=== PATIENT | male | born 1975 | race Asian ===

== ENCOUNTER 2017-01-01 22:48 | Inpatient (IN) | payer OTHER ==
[~2017-01-01] VITALS: Ht 177.8 cm; Wt 81.6 kg
[2017-01-01] MEDS ORDERED: NITROGLYCERIN OINT 1GM/INCH UDPKT TD STA (23:30)
[2017-01-02] VITALS (7 sets, daily range): BP systolic 115–132; BP diastolic 66–89
[2017-01-02 00:05] LABS: BASOPHILS % 0.7 % (0.0-2.0); EOSINOPHILS % 4.2 % (0.0-5.0); HEMATOCRIT. 43.8 % (42.0-52.0); HEMOGLOBIN. 15.4 g/dL (14.0-18.0); LYMPHOCYTES % 37.7 % (20.0-50.0); MEAN CORPUSCULAR HEMOGLOBIN 32.4 pg (28.0-32.0); MEAN CORPUSCULAR VOLUME 92.1 fL (80.0-94.0); MEAN PLATELET VOLUME 9.2 fl (7.4-10.4); MONOCYTES % 7.5 % (2.0-8.0); NEUTROPHILS % 49.9 % (40.0-76.0); PLATELET 224 x1000/uL (130-400); RED BLOOD CELL COUNT 4.76 mill/uL (4.7-6.1); RED CELL DISTRIBUTION WIDTH 13.6 % (11.6-14.6)
[2017-01-02 00:16] LABS: CARBON DIOXIDE 25 mEq/L (21-32); CHLORIDE 108 mEq/L (98-107); TROPONIN I < 0.02 ng/mL (0.00-0.04)
[2017-01-02] MEDS ORDERED: SODIUM CHLORIDE 0.9% 1,000 ML IV SCH ×2 (00:32→11:15)
[2017-01-02] MEDS ORDERED: ACETAMINOPHEN 325MG TABLET PO ONE (02:15)
[2017-01-02] MEDS ORDERED: ASPI-1159 PO (03:57)
[2017-01-02] MEDS ORDERED: ATEN-42 PO (03:57)
[2017-01-02] MEDS ORDERED: NITR0.4T SL (03:57)
[2017-01-02] MEDS ORDERED: MORPHINE SULFATE 4 MG/ML CPJ (NOT FOR IM USE) IV PRN (06:45)
[2017-01-02] MEDS ORDERED: MAGNESIUM/ALUMINUM HYDROXIDE/SIMETHICONE 30ML UDC PO PRN (07:45)
[2017-01-02] MEDS ORDERED: ACETAMINOPHEN 650MG SUPP PR PRN (07:45)
[2017-01-02] MEDS ORDERED: ACETAMINOPHEN 650MG/20.3ML UDC GT PRN (07:45)
[2017-01-02] MEDS ORDERED: CLONIDINE 0.1MG TABLET PO PRN (07:45)
[2017-01-02] MEDS ORDERED: IPRATROPIUM/ALBUTEROL 0.5-3(2.5)MG/3ML NEB INH PRN (07:45)
[2017-01-02] MEDS ORDERED: DIPHENHYDRAMINE 50MG/ML VIAL IV PRN (07:45)
[2017-01-02] MEDS ORDERED: ACETAMINOPHEN 325MG TABLET PO PRN ×2 (07:45→11:15)
[2017-01-02] MEDS ORDERED: NA PHOS,M-B/NA PHOS,DI-BA ENEMA 118ML PR PRN (07:45)
[2017-01-02] MEDS ORDERED: GUAIFENESIN 200MG/10ML SUGAR FREE UDC PO PRN (07:45)
[2017-01-02] MEDS ORDERED: ONDANSETRON HCL 4MG/2ML VIAL IV PRN (07:45)
[2017-01-02] MEDS ORDERED: HYDROCODONE/ACETAMINOPHEN 5/325MG TABLET PO PRN (07:45)
[2017-01-02] MEDS: ENOXAPARIN 40MG/0.4ML SYR SUBCUT SCH (08:37)
[2017-01-02] MEDS ORDERED: DOCUSATE SODIUM 100MG CAPSULE PO PRN (09:00)
[2017-01-02] MEDS ORDERED: CLOPIDOGREL 75MG TABLET PO NR (10:00)
[2017-01-02] MEDS ORDERED: MIDAZOLAM HCL 2 MG/2 ML VIAL ONE (11:05)
[2017-01-02] MEDS ORDERED: LIDOCAINE HCL 1% 20ML VIAL (Pyxis) INJ ONE (11:06)
[2017-01-02] MEDS ORDERED: FENTANYL CITRATE/PF 50MCG/ML 2ML VIAL ONE (11:06)
[2017-01-02] MEDS ORDERED: ATROPINE SULFATE 1MG/10ML SYR IV PRN (11:15)
[2017-01-02 11:22] LABS: T4 FREE 0.94 ng/dL (0.76-1.46)
[2017-01-02] MEDS ORDERED: NITROGLYCERIN 50MCG/ML 10ML VIAL (CATH LAB) IV ONE (11:27)
[2017-01-02] MEDS ORDERED: PNEUMOCOCCAL 23-VAL P-SAC VAC 0.5 ML IM ONE (12:00)
[2017-01-02] MEDS ORDERED: IOHEXOL-350 100 ML BOTTLE ONE (12:42)
[2017-01-02 14:45] LABS: CLARITY URINE CLEAR (CLEAR); COLOR URINE YELLOW (YELLOW); GLUCOSE URINE NEGATIVE (NEGATIVE); KETONES URINE NEGATIVE (NEGATIVE); LEUKOCYTE ESTERASE URINE NEGATIVE (NEGATIVE); NITRITE URINE NEGATIVE (NEGATIVE); OCCULT BLOOD URINE NEGATIVE (NEGATIVE); PROTEIN URINE NEGATIVE (NEGATIVE); SPECIFIC GRAVITY URINE 1.023 (1.005-1.030); UROBILINOGEN URINE 0.2 E.U./dL (0.2-1.0)
[2017-01-02 15:11] LABS: *AMPHETAMINES SCREEN URINE NEGATIVE (NEGATIVE); *BARBITURATES SCREEN URINE NEGATIVE (NEGATIVE); *BENZODIAZEPINES SCREEN URINE NEGATIVE (NEGATIVE); *COCAINE SCREEN URINE NEGATIVE (NEGATIVE); CANNABINOID URINE SCREEN NEGATIVE (NEGATIVE); METHADONE URINE SCREEN NEGATIVE (NEGATIVE); OPIATES URINE SCREEN NEGATIVE (NEGATIVE); PHENCYCLIDINE URINE SCREEN NEGATIVE (NEGATIVE)
[2017-01-02 20:51] LABS: CREATINE KINASE 80 IU/L (39-308); TROPONIN I < 0.02 ng/mL (0.00-0.04)
[2017-01-02 20:52] LABS: CREATINE KINASE MB FRACTION 0.8 ng/mL (0.5-3.6)
[2017-01-03] VITALS: BP 124/68
[2017-01-03 04:00] VITALS: BP 124/70
[2017-01-03 04:45] LABS: CARBON DIOXIDE 26 mEq/L (21-32); CHLORIDE 105 mEq/L (98-107); CREATINE KINASE 72 IU/L (39-308); CREATINE KINASE MB FRACTION < 0.5 ng/mL (0.5-3.6); HDL CHOLESTEROL 31 mg/dL (40-59); LDL CHOLESTEROL 73 mg/dL (5-100); TROPONIN I < 0.02 ng/mL (0.00-0.04)
[2017-01-03 05:41] LABS: BASOPHILS % 0.4 % (0.0-2.0); EOSINOPHILS % 4.2 % (0.0-5.0); HEMATOCRIT. 45.5 % (42.0-52.0); HEMOGLOBIN. 15.4 g/dL (14.0-18.0); LYMPHOCYTES % 35.3 % (20.0-50.0); MEAN CORPUSCULAR HEMOGLOBIN 31.8 pg (28.0-32.0); MEAN CORPUSCULAR VOLUME 94.1 fL (80.0-94.0); MEAN PLATELET VOLUME 9.5 fl (7.4-10.4); MONOCYTES % 6.8 % (2.0-8.0); NEUTROPHILS % 53.3 % (40.0-76.0); PLATELET 226 x1000/uL (130-400); RED BLOOD CELL COUNT 4.84 mill/uL (4.7-6.1)
[2017-01-03] MEDS ORDERED: ASPIRIN 81MG TABLET PO SCH (09:00)
[2017-01-03] MEDS ORDERED: CLOPIDOGREL 75MG TABLET PO SCH (09:00)
[2017-01-03] MEDS: ENOXAPARIN 40MG/0.4ML SYR SUBCUT SCH (09:00)
[2017-01-03] MEDS ORDERED: ISOSORBIDE MONONITRATE 30MG TABLET SR 24HR PO SCH (10:00)
[2017-01-03 13:12] VITALS: BP 117/89
== END 2017-01-03 15:10 | disposition home or self-care (01) | DRG 287 ==
LOC: ER 22:53 → 5WST 01-02 00:37 → EDBEDREQ 01-02 00:38 → EDBEDREQTM 01-02 00:38 → ENRESERV 01-02 01:07
PROVIDERS: ADMIT Family Medicine; ATTEND Family Medicine
PROC: 4A023N7 Measurement of Cardiac Sampling and Pressure, Left Heart, Percutaneous Approach (ICD-10-PCS; principal; 2017-01-02)
PROC: B2111ZZ Fluoroscopy of Multiple Coronary Arteries using Low Osmolar Contrast (ICD-10-PCS; 2017-01-02)
DX: I20.0 Unstable angina (principal); E78.5 Hyperlipidemia, unspecified; I10 Essential (primary) hypertension; R94.31 Abnormal electrocardiogram [ECG] [EKG]; Z60.2 Problems related to living alone; Z79.899 Other long term (current) drug therapy; Z79.82 Long term (current) use of aspirin
CPT/HCPCS: 36415; 71010; 71275; 80048; 80053; 80061; 80305; 81003; 82550; 82553; 83036; 83880; 84439; 84443; 84484; 85025; 85379; 93005; 93306; 93458; 93970; 99285; C1769; C1887; C1893; J1644; J1650; J2250; J2270; J3010; J3490; J7030; Q9967